=== PATIENT | male | born 1945 | race Caucasian/White ===

== ENCOUNTER 2016-11-14 20:08 | Observation (INO) | payer MEDICARE, OTHER ==
[~2016-11-14] VITALS: Ht 177.8 cm; Wt 84.0 kg
--- NOTE | 2016-11-16 12:00 | HP ---
ADMIT: 11/14/2016 RM/LOC: 421 [facility] MR#: [id number] [address] [id number] YAKELIN WU [address] [place] [address] History and Physical SEX: M AGE: 71 : 1945 DATE OF SERVICE: CHIEF COMPLAINT AND HISTORY OF PRESENT ILLNESS: This 71-year-old male is admitted for confusion and disorientation. He had gone out and walked for approximately 5 miles, he was not aware of it. His brought him in, he had been hearing voices. He was seen in the emergency room. He was brought in initially and intermittently he is confused and he states he has been paranoid for approximately 10 years. He does take Abilify and Cogentin, he takes Cogentin for shaking. Initially he had a heart rate of approximately 200 and this converted spontaneously without adenosine and now has increased his heart rate to approximately 150. He thinks he did not take his Cardizem yesterday. PREVIOUS MEDICAL HISTORY: Generally, his health has been poor. 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 Meraz for this. He also has had epiglottal cancer and sees a physician in [place] for this. He has had the atrial fibrillation and takes Cardizem for the atrial fibrillation. MEDICATIONS: Include: 1. Eliquis 5 mg b.i.d. 2. Abilify 15 mg daily. 3. Benztropine 1 mg b.i.d. 4. Magnesium 300 mg daily. 5. Potassium 200 mg daily. 6. Vitamin B complex 100 mg b.i.d. 7. B12 of 8000 mcg daily. ALLERGIES: NONE. SOCIAL HISTORY: The patient is , he is retired. The patient used to drink heavily, but that was over 11 years ago. He used to be a smoker, but is currently not smoking. FAMILY HISTORY: There is a family history of heart disease and stroke. REVIEW OF SYSTEMS: HEENT: There has been no headaches, sinus problems, hay fever, change in vision. He has had cataract on both sides. CARDIORESPIRATORY: The patient has had no history of congestive heart failure or pacemaker. He has had atrial fibrillation. He has had a cardioversion. There is no history of pulmonary emboli, hypertension, or edema. GI: The patient had a gastric lymphoma. Otherwise no nausea, vomiting, bloody stools, or diarrhea. : No hematuria or dysuria. METABOLIC/ENDOCRINE: No history of diabetes or thyroid disease. PHYSICAL EXAMINATION: VITAL SIGNS: Blood pressure 140/80, the pulse is 125 and irregularly irregular, respirations 14. GENERAL: The patient is a well-nourished, well-developed male. He is cooperative at this time. He is alert. He is oriented to place. He is oriented ADMIT: 11/14/2016 RM/LOC: 421 [facility] MR#: [id number] [address] [place] [id number] YAKELIN WU [address] [place] [id number] History and Physical SEX: M AGE: 71 : 1945 to time. He knows the motion picture photographer. He knows where he is, but he states that his had dropped him off and then went home and someone killed her. He also thinks that other people tried to kill him and he also states he has heard voices of people talking to him, although his told but they were not there. He is aware of his history of lymphoma, he is aware of his medications that he is taking and why he is taking them. HEENT: Head - normocephalic without exostoses. NEGIN. Throat within normal limits. NECK: Neck veins not distended. Thyroid not enlarged. CHEST: Clear to percussion and auscultation. HEART: Irregular rhythm. No murmur is heard. ABDOMEN: Soft, nontender. Liver is not enlarged. Spleen is not palpable. No abnormal masses are palpated. Femoral pulses are strong and equal bilaterally. GENITALIA: Normal. EXTREMITIES: No cyanosis, clubbing or edema. ASSESSMENT: 1. Atrial fibrillation with rapid ventricular response, paroxysmal. 2. Psychosis with auditory hallucinations. 3. Gastric lymphoma. 4. Cancer of the epiglottis. 5. Tremor. 6. History of tobacco abuse. 7. History of alcohol abuse. Adan Marion MD/ jay JOB #: [id number] CC: Adan Marion, Attending Physician Adan Marion, Family Physician
--- NOTE | 2016-11-19 01:31 | ER ---
ADMIT: 11/14/2016 RM/LOC: 421 [facility] MR#: [id number] [address] [place], [place] [address] YAKELIN WU [address] [place] [address] Emergency Room Report SEX: M AGE: 71 : 1945 DATE: 11/14/2016 See T-sheet for complete H and P. ADDENDUM: HISTORY OF PRESENT ILLNESS: A 71-year-old male, comes in complaining of hallucinations. His states that he has been chasing imaginary people around the house with a stick. She reports that this has been going on for several days, it has been getting worse and was more noticeable today. She also states that he wandered off and walked about 5 miles this morning away from their home. He otherwise denies any specific complaints, is not complaining of chest pain, shortness of breath, abdominal pain. He does not note that his heart has been racing and does drink coffee normally, but not drink anymore and has no new medications. REVIEW OF SYSTEMS: A 12-point review of systems is done and otherwise negative except as in HPI. PAST MEDICAL HISTORY: Significant for coronary artery disease, AFib, COPD, lymphoma, neck cancer. PAST SURGICAL HISTORY: He has had resection of his neck cancer. MEDICATIONS: See nurse's note. He is on Eliquis. ALLERGIES: SEE NURSE'S NOTE. SOCIAL HISTORY: The patient smoked his entire life, but quit 7 years ago and has history of alcohol abuse, but quit 20 years ago. PHYSICAL EXAMINATION: GENERAL: The patient is alert, oriented, does not appear confused when I spoke to him. Airway is patent. HEART: Initially regular rate on initial presentation, but when I went in to examine him, he became tachycardic with a rate of 200. He was not symptomatic at that time. LUNGS: Clear to auscultation. ABDOMEN: Soft, nontender. SKIN: Warm and dry. EXTREMITIES: He has 1+ pedal edema in bilateral lower extremities. He has good pulses. LABORATORY AND IMAGING DATA: Chest x-ray shows nothing acute. CT head shows slight area of hypoattenuation, but it is thought not likely be acute. His white count is 12.3. Chemistries are normal other than potassium of 3.5, CK is elevated at 597, MB is 5.4, troponin 0.071, ammonia is less than 10, lactic acid is 1.2, procalcitonin is less than 0.05. EKG shows sinus rhythm, rate of 89. No signs of ST-elevation or acute TN. ADMIT: 11/14/2016 RM/LOC: 421 [facility] MR#: [id number] [address] [address] YAKELIN WU [address] [place] [address] Emergency Room Report SEX: M AGE: 71 : 1945 EMERGENCY DEPARTMENT COURSE: The patient presented, he was initially in what was likely a sinus rhythm and normal rate, but early in his stay, he did tack up to 200 and he appeared to be in SVT. By the time we get an EKG and give him adenosine, he converted back to sinus rhythm. I spoke to Dr. Marion, who will be admitting the patient at this time. He is admitted in improved condition with; DIAGNOSES: 1. Elevated troponin. 2. Hallucinations. 3. Tachydysrhythmia. 4. Paranoia. Dao Cook MD/ jay JOB #: [id number] CC: Adan Marion MD, Attending Physician Adan Marion MD, Family Physician
--- NOTE | 2016-11-27 11:03 | DS ---
ADMIT: 11/14/2016 RM/LOC: 421 [facility] MR#: [id number] [address] [facility] [address] [place] [id number] YAKELIN WU [address] [place] [address] Discharge Summary SEX: M AGE: 71 : 1945 ADMISSION DATE: 11/14/2016 DISCHARGE DATE: 11/15/2016 HISTORY AND PHYSICAL: Please see the chart. LABORATORY AND X-RAY DATA: Please see the chart. CLINICAL COURSE: This 71-year-old male was admitted to the hospital for observation on telemetry for increasing confusion, paranoia. The patient initially was admitted and placed on a cardiac diet. Monitored for any dysrhythmias, none of which were found. He was started on Ensure once daily. He did have rapid heart rate up to 180 and his Cardizem was increased to 180 mg CD once daily. He was placed on a full liquid diet. He did have some mild hypokalemia and his potassium was increased to 10 mEq t.i.d. A psychiatric consultation was requested and the patient was periodically upset and agitated and thought that someone had killed his and was thinking about killing him. It is recommended that the patient be transferred to the psychiatric unit at [facility] He was able to be transferred via ambulance via the police department. He is given his B12, Procardia, potassium. FINAL DIAGNOSIS: 1. Acute confusion and paranoia. 2. Mild dementia. 3. Ischemic heart disease. 4. History of gastric cancer. 5. History of epiglottic cancer. 6. Tremor. 7. Remote history of tobacco use. 8. Remote history of alcohol use. 9. Chronic atrial fibrillation. Adan Marion MD/ edd JOB #: [id number] CC: Adan Marion MD, Attending Physician Adan Marion MD, Family Physician
[2017-01-25] MEDS ORDERED: COLACE-DPS100 MG PO (16:21)
[2017-01-25] MEDS ORDERED: ELIQUIS5 MG PO (16:21)
[2017-01-25] MEDS ORDERED: TIAZAC180 MG PO (16:21)
== END 2016-11-15 18:02 | disposition short-term general hospital (02) ==
LOC: ER 20:08 → 4PCU 21:51
DX: I48.0 Paroxysmal atrial fibrillation (principal); R44.0 Auditory hallucinations; F29 Unspecified psychosis not due to a substance or known physiological condition; C85.99 Non-Hodgkin lymphoma, unspecified, extranodal and solid organ sites; Z87.891 Personal history of nicotine dependence; R25.1 Tremor, unspecified; Z79.899 Other long term (current) drug therapy; Z85.89 Personal history of malignant neoplasm of other organs and systems; Z91.041 Radiographic dye allergy status